=== PATIENT | male | born 1945 | race Caucasian/White ===

== ENCOUNTER 2019-01-12 04:42 | Emergency (ER) | payer MEDICARE, OTHER ==
[2019-01-12] MEDS ORDERED: CEPHALEXIN 500 MG CAPSULE PO STA (04:50)
--- NOTE | 2019-01-12 04:53 | Emergency Department Record ---
History of Present Illness - General Chief complaint: Male Urogenital Problem Stated complaint: TICK OR CYST ON GROIN Time Seen by Provider: 01/12/19 04:45 Source: Patient Mode of Arrival: Ambulatory Limitations: No limitations - History of Present Illness Initial comments: 73 yo male presents to ED for evaluation of a painful lesion to the right groin for the past several days. Patient is concerned about possible "cyst or tick". Patient denies drainage from the area, denies fevers, chills, or recent illness. Patient denies trauma to the area. MD Complaint: Other -: Days(s) Location: Right inguinal region Radiation: None Severity: Moderate Quality: Aching Consistency: Constant Improves with: None Worsens with: None Reports: Denies other symptoms - Related Data Previous Rx's Medication Instructions Recorded Cephalexin [Keflex] 500 mg PO QID #39 cap 01/12/19 Nystatin 1 apply TP BID #30 gm 01/12/19 Allergies Allergy/AdvReac Type Severity Reaction Status Date / Time No Known Drug Allergies Allergy Unverified 08/11/16 18:02 Review of Systems Constitutional: Denies: Chills, Fever, Malaise, Night sweats Eyes: Denies: Eye discharge, Eye pain ENT: Denies: Congestion, Ear pain, Epistaxis Respiratory: Denies: Cough, Dyspnea Cardiovascular: Denies: Chest pain, Dyspnea on exertion Endocrine: Denies: Fatigue, Heat or cold intolerance Gastrointestinal: Denies: Abdominal pain, Nausea, Vomiting Genitourinary: Denies: Incontinence, Retention Musculoskeletal: Denies: Arthralgia, Back pain, Gout, Joint swelling Skin: Reports: Other (Lesion right inguinal region). Denies: Bruising, Change in color Neurological: Denies: Abnormal gait, Confusion, Headache, Seizure Psychiatric: Denies: Anxiety Hematological/Lymphatic: Denies: Anemia, Blood Clots Past Medical History - SOCIAL HISTORY Smoking Status: Former smoker - RESPIRATORY Hx Respiratory Disorders: Yes - CARDIOVASCULAR Hx Cardio Disorders: Yes - NEURO Hx Neuro Disorders: Yes - GI Hx Reflux: Yes Comment:: Hx of polyps, dysphagia - Hx Genitourinary Disorders: No - ENDOCRINE Hx Endocrine Disorders: No - MUSCULOSKELETAL Hx Musculoskeletal Disorders: Yes - PSYCH Hx Psych Problems: No - HEMATOLOGY/ONCOLOGY Hx Hematology/Oncology Disorders: No Physical Exam - General General Appearance: Alert, Oriented x3, Cooperative, No acute distress Limitations: No limitations - Head Head exam: Atraumatic, Normocephalic, Normal inspection Head exam detail: negative: Abrasion, Contusion, Cevallos's sign, General tenderness, Hematoma, Laceration - Eye Eye exam: Normal appearance. negative: Conjunctival injection, Periorbital swelling, Periorbital tenderness, Scleral icterus - ENT Ear exam: negative: Auricular hematoma, Auricular trauma Nasal Exam: negative: Active bleeding, Discharge, Dried blood, Foreign body Mouth exam: negative: Drooling, Laceration, Muffled voice, Tongue elevation - Neck Neck exam: Normal inspection. negative: Meningismus, Tenderness - Respiratory Respiratory exam: Normal lung sounds bilaterally. negative: Rales, Respiratory distress, Rhonchi, Stridor - Cardiovascular Cardiovascular Exam: Regular rate, Normal rhythm, Normal heart sounds - GI/Abdominal GI/Abdominal exam: Soft. negative: Rebound, Rigid, Tenderness - Rectal Rectal exam: Deferred - exam: Deferred - Extremities Extremities exam: Normal inspection. negative: Pedal edema, Tenderness - Back Back exam: Denies: CVA tenderness (R), CVA tenderness (L) - Neurological Neurological exam: Alert, Normal gait, Oriented X3 - Psychiatric Psychiatric exam: Normal affect, Normal mood - Skin Skin exam: Abrasion Type of lesion: abrasion Distribution of rash: Other (1.5 cm lesion to the right inguinal region, no abscess present, no drainage. Findings appear c/w skin breakdown vs. early cellulitis.) Course Vital Signs 01/12/19 04:48 Temperature 97.7 F Pulse Rate [ 91 H Pulse Ox Probe] Respiratory 24 Rate Blood Pressure 152/80 [Left Arm] Pulse Ox 92 L - Reevaluation(s) Reevaluation #1: 01/12/19 04:57 Examination appears c/w skin breakdown in the inguinal fold vs. early cellulitis. Will treat with nystatin powder and Keflex as directed. No abscess present on examination, no palpable lesion, no drainage from the wound area on examination. Patient appears stable for discharge at this time. Disposition Disposition: Discharge Clinical Impression: Skin breakdown Disposition: Home, Self-Care Condition: (2) Stable Instructions: Abrasion (ED) Additional Instructions: Return to ED if your symptoms worsen or if you have any concerns. Keflex, Nystatin powder as directed. Follow-up with your family doctor in 3-5 days as directed. Prescriptions: Cephalexin [Keflex] 500 mg PO QID #39 cap Nystatin 1 apply TP BID #30 gm Forms: Patient Portal Access Time of Disposition: 04:53 Quality - Quality Measures Quality Measures: N/A - Blood Pressure Screening Does Patient Have Any of the Following: No Blood Pressure Classification: Pre-Hypertensive BP Reading Systolic Measurement: 152 Diastolic Measurement: 80 Screening for High Blood Pressure: < Pre-Hypertensive BP, F/U Documented > [[id number]] Pre-Hypertensive Follow-up Interventions: Referral to alternative/primary care provider.
== END 2019-01-12 05:09 | disposition home or self-care (01) ==
LOC: ER 04:42
DX: S30.811A Abrasion of abdominal wall, initial encounter (principal); X58.XXXA Exposure to other specified factors, initial encounter; Z87.891 Personal history of nicotine dependence
CPT/HCPCS: 99282